=== PATIENT | female | born 1955 | race Caucasian/White ===

== ENCOUNTER → 2024-11-29 11:03 | Outpatient (CLI) | payer MEDICARE, OTHER, SELFPAY ==
--- NOTE | 2024-11-29 11:06 | DI.MG.S_ITS ---
MM screening mammo BI: 11/29/2024. BI-RADS: 0 CLINICAL: 69-year old female for bilateral screening mammogram. Tyrer-Cuzick lifetime risk of 17.3%. Current reported family history of breast cancer: mother. PRIOR EXAMS 10/26/2023, 12/20/2022, 05/02/2022, 04/25/2022, 04/22/1021, 04/21/2020. MAMMOGRAPHY TECHNIQUE: 2D and 3D (tomosynthesis) digital mammographic views obtained, with additional images as needed for full coverage. Current study was also evaluated with a Computer Aided Detection (CAD) system. DENSITY C. The breasts are heterogeneously dense, which may obscure small masses. MAMMOGRAPHY FINDINGS Right: No suspicious mass, asymmetry, microcalcification, or other abnormality seen. Left: Upper at 11:30, Middle depth: There is a new focal asymmetry present with associated calcifications. Additional imaging evaluation needed. IMPRESSION: Right * No evidence of malignancy. Left (Asymmetry): Upper at 11:30, Middle depth * Incomplete - Needs additional imaging evaluation. RECOMMENDATIONS Left: Upper at 11:30, Middle depth * Further evaluation with diagnostic mammography and diagnostic ultrasound. Ultrasound to be performed only if needed. OVERALL ASSESSMENT CATEGORY BI-RADS-0: Incomplete - Need Additional Imaging Evaluation. ELECTRONICALLY SIGNED: Camacho Bañuelos M.D. on 11/29/2024 at 05:33:43 PM PT Interpreting Station ID: [id number]
== END ==
PROVIDERS: PCP Family Medicine; Referring Provider Family Medicine; Visit Provider Family Medicine
DX: Z12.31 Encounter for screening mammogram for malignant neoplasm of breast (principal); R92.8 Other abnormal and inconclusive findings on diagnostic imaging of breast; R92.333 Mammographic heterogeneous density, bilateral breasts; Z80.3 Family history of malignant neoplasm of breast
CPT/HCPCS: 77063; 77067

== ENCOUNTER → 2024-12-04 13:23 | Outpatient (CLI) | payer MEDICARE, OTHER, SELFPAY ==
--- NOTE | 2024-12-04 13:24 | DI.MG.S_ITS ---
MM diagnostic mammo unilat LT: 12/04/2024. BI-RADS: 4 CLINICAL: 69-year old female for left diagnostic mammogram that is a recall from screening on 11/29/2024. Tyrer-Cuzick lifetime risk of 17.3%. Current reported family history of breast cancer: mother. PRIOR EXAMS Mammogram(s): 11/29/2024. MAMMOGRAPHY TECHNIQUE: 2D and 3D (tomosynthesis) digital mammographic views obtained, with additional images as needed for full coverage. Current study was also evaluated with a Computer Aided Detection (CAD) system. DENSITY Left: C. The breasts are heterogeneously dense, which may obscure small masses. MAMMOGRAPHY FINDINGS Left: Upper Inner Quadrant, Posterior depth, 0.9cm. Previous report: Upper at 11:30: There are suspicious grouped coarse heterogeneous calcifications. IMPRESSION: Left (Calcification): Upper Inner Quadrant, Posterior depth, 0.9cm. Previous report: Upper at 11:30 * Suspicious findings with likelihood of malignancy. RECOMMENDATIONS Left: Upper Inner Quadrant, Posterior depth * Stereotactic-guided biopsy for further evaluation. COMMENTS: Findings and recommendations were discussed with the patient by Dr. Brenner during today's examination. OVERALL ASSESSMENT CATEGORY BI-RADS-4: Suspicious. ELECTRONICALLY SIGNED: Smita Acosta M.D. on 12/04/2024 at 02:46:39 PM PT Interpreting Station ID: [id number]
== END ==
LOC: MAMMO 13:24
PROVIDERS: PCP Family Medicine; Referring Provider Family Medicine; Visit Provider Family Medicine
DX: R92.8 Other abnormal and inconclusive findings on diagnostic imaging of breast (principal); R92.1 Mammographic calcification found on diagnostic imaging of breast; N63.20 Unspecified lump in the left breast, unspecified quadrant; R92.332 Mammographic heterogeneous density, left breast; Z80.3 Family history of malignant neoplasm of breast
CPT/HCPCS: 77065; G0279

== ENCOUNTER → 2024-12-23 08:09 | Outpatient (CLI) | payer MEDICARE, OTHER, SELFPAY ==
--- NOTE | 2024-12-23 08:54 | DI.MRI.S_ITS ---
MR breast BI wo/w con: 12/23/2024. BI-RADS: 6 CLINICAL: 69-year old female for bilateral diagnostic breast MRI that is a recall from screening on 11/29/2024. Current reported family history of breast cancer: mother. PRIOR EXAMS: Mammogram(s): 12/04/2024, 11/29/2024. Exam: 12/12/2024. Breast Procedure(s): 12/12/2024. MRI TECHNIQUE: Bilateral breast MRI was performed on a 1.5 Kae magnet using a dedicated breast coil with mild compression. Axial T1 and T2 STIR sequences were obtained. Dynamic contrast enhanced VIBRANT fat-suppressed sequences were obtained. Delayed sagittal high resolution or sagittal reconstructed isotropic sequence was also obtained. Subtraction images and maximum intensity projection images were obtained. The study was evaluated using Slan[employer] software. IV Contrast: 20 ml ProHance. FIBROGLANDULAR TISSUE Bilateral: C. Heterogeneous fibroglandular tissue. BACKGROUND PARENCHYMAL ENHANCEMENT Bilateral: Mild symmetrical background parenchymal enhancement. BREAST FINDINGS Right: There is no suspicious mass or non-mass enhancement. Left: Upper Inner Quadrant, Posterior depth: There is susceptibility artifact from biopsy clip corresponding to biopsy-proven malignancy (invasive lobular carcinoma). There is minimal surrounding non-mass enhancement spanning up to 1.9 cm in AP dimension (). There is no suspicious lymphadenopathy. IMPRESSION: Right * No evidence of malignancy. Left: Upper Inner Quadrant, Posterior depth * Known Biopsy-Proven Malignancy. RECOMMENDATIONS Left * Recommend appropriate surgical/oncological treatment of known breast cancer. OVERALL ASSESSMENT CATEGORY BI-RADS-6: Known Biopsy-Proven Malignancy. ELECTRONICALLY SIGNED: Smita Acosta M.D. on 12/30/2024 at 11:29:55 PM PT Interpreting Station ID: [id number]
== END ==
PROVIDERS: PCP Family Medicine; Referring Provider Family Medicine; Visit Provider Family Medicine
DX: C50.212 Malignant neoplasm of upper-inner quadrant of left female breast (principal); Z80.3 Family history of malignant neoplasm of breast; R92.323 Mammographic fibroglandular density, bilateral breasts
CPT/HCPCS: 77049; A9579

== ENCOUNTER → 2025-02-06 07:56 | Outpatient (CLI) | payer MEDICARE, OTHER, SELFPAY ==
[2025-02-06 08:46] LABS: Add Manual Diff / Slide Review NO; Hematocrit 41.3 % (36-46); Hemoglobin 14.1 g/dL (12.0-16.0); Lymphocytes Absolute Auto 1500 /uL (1100-4500); Mean Corpuscular HGB Conc 34.2 % (30-36); Mean Corpuscular Hemoglobin 30.8 PG (26-34); Mean Corpuscular Volume 90.1 fL (80-100); Platelet Count 204 X10^3/uL (150-400)
[2025-02-06 08:57] LABS: Alanine Aminotransferase 20 IU/L (<35); Albumin 4.7 g/dL (3.5-5.0); Albumin Globulin Ratio 1.9 (1.0-2.8); Alkaline Phosphatase 104 U/L (38-126); Blood Urea Nitrogen 19 mg/dL (7-17); Calcium 9.9 mg/dL (8.4-10.2); Carbon Dioxide 30 mmol/L (22-32); Chloride 107 mmol/L (98-107); Cholesterol 216 mg/dL (140-199); Estimated Glomerular Filt Rate > 60 mL/min (>60); Globulin 2.5 g/dL (1.7-4.1); Glucose 90 mg/dL (70-99); HDL Cholesterol 46 mg/dL (40-60); HEMOLYSIS < 15 (0-50); Potassium 4.6 mmol/L (3.4-5.1); Sodium 143 mmol/L (137-145); Total Protein 7.2 g/dL (6.3-8.2); Triglycerides 178 mg/dL (35-150)
[2025-02-06 09:16] LABS: T4 Total Thyroxine 7.94 ug/dL (5.5-11.0)
[2025-02-06 09:29] LABS: Thyroid Stimulating Hormone 0.029 uIU/mL (0.47-4.68)
== END ==
PROVIDERS: PCP Family Medicine; Referring Provider Family Medicine; Visit Provider Family Medicine
DX: E03.9 Hypothyroidism, unspecified (principal); R87.610 Atypical squamous cells of undetermined significance on cytologic smear of cervix (ASC-US); R87.810 Cervical high risk human papillomavirus (HPV) DNA test positive; N20.0 Calculus of kidney; C50.912 Malignant neoplasm of unspecified site of left female breast
CPT/HCPCS: 36415; 80053; 80061; 84436; 84443; 85025

== ENCOUNTER → 2025-04-22 13:27 | Outpatient (CLI) | payer MEDICARE, OTHER, SELFPAY | PROVIDERS: PCP Family Medicine; Visit Provider Nurse Practitioner Family | DX: R10.A0 Flank pain, unspecified side (principal); N89.8 Other specified noninflammatory disorders of vagina | CPT/HCPCS: 87077; 87086; 87210 ==

== ENCOUNTER 2025-04-26 13:24 | Emergency (ER) | payer MEDICARE, OTHER, SELFPAY ==
[2025-04-26] VITALS (17 sets, daily range): BP systolic 112–166; BP diastolic 55–76; PULSE 99–123; RESP 15–23; TEMP 37.4–37.9; O2SAT 94–100; BMI 24.7
--- NOTE | 2025-04-26 13:56 | DI.RAD.S_ITS ---
PROCEDURE: XR CHEST 1V INDICATIONS: suspected sepsis TECHNIQUE: One view of the chest was acquired. COMPARISON: None. FINDINGS: Surgical changes and devices: Surgical clips in the left axilla Lungs and pleura: Lungs are clear. No pleural effusions or pneumothorax. Mediastinum: Mediastinal contours appear normal. Heart size is normal. Bones and chest wall: No suspicious bony lesions. Overlying soft tissues appear unremarkable. IMPRESSION: No acute cardiopulmonary abnormality is seen. Approved by: Edgar Gray M.D. on 04/26/2025 at 13:42
--- NOTE | 2025-04-26 13:56 | EKG_ITS ---
[address] [address] Test Date: 2025-04-26 Pat Name: Wanda Tomlin Department: [facility] Room: Gender: Female Supervisor Backfilling: WILFRID : [id number] Requested By: Order Number: [id number] Reading MD: Min Ramirez MD Measurements Intervals [place] Rate: 115 P: 66 IA: 136 QRS: 29 QRSD: 66 T: 67 QT: 304 QTc: 420 Interpretive Statements Sinus tachycardia Nonspecific ST abnormality Electronically Signed On 04-26-2025 14:32:25 PDT by Min Ramirez MD
[2025-04-26] MEDS: SODIUM CHLORIDE 0.9% 1,000 ML 1000 ML IV ×2 (14:09→17:47)
[2025-04-26 14:34] LABS: Hematocrit 35.3 % (36-46); Hemoglobin 11.8 g/dL (12.0-16.0); Mean Corpuscular HGB Conc 33.5 % (30-36); Mean Corpuscular Hemoglobin 31.7 PG (26-34); Mean Corpuscular Volume 94.4 fL (80-100); Platelet Count 115 X10^3/uL (150-400)
[2025-04-26 14:36] LABS: Add Manual Diff / Slide Review YES
[2025-04-26] MEDS: SODIUM CHLORIDE 0.9% 1,837.05 ML 612.35 ML IV (14:36)
[2025-04-26] MEDS: ACETAMINOPHEN IV 1,000 MG/100 ML VIAL 400 MG IV (14:36)
[2025-04-26 14:40] LABS: INR 1.1 (0.9-1.3); Prothrombin Time 11.9 SECONDS (9.4-12.5)
[2025-04-26 14:43] LABS: PTT Partial Thromboplastin Tim 24 SECONDS (25.1-36.5)
[2025-04-26 14:45] LABS: Alanine Aminotransferase 27 IU/L (<35); Albumin 4.5 g/dL (3.5-5.0); Albumin Globulin Ratio 1.5 (1.0-2.8); Alkaline Phosphatase 150 U/L (38-126); Blood Urea Nitrogen 15 mg/dL (7-17); Calcium 9.2 mg/dL (8.4-10.2); Carbon Dioxide 25 mmol/L (22-32); Chloride 103 mmol/L (98-107); Estimated Glomerular Filt Rate > 60 mL/min (>60); Globulin 3.0 g/dL (1.7-4.1); Glucose 109 mg/dL (70-99); HEMOLYSIS 47 (0-50); Lactate (Lactic Acid) 1.1 mmol/L (0.7-2.1); Lipase 58 U/L (23-300); Potassium 4.3 mmol/L (3.4-5.1); Sodium 136 mmol/L (137-145); Total Protein 7.5 g/dL (6.3-8.2)
[2025-04-26 14:50] LABS: Band Neutrophils Percent 2.0 % (3-7); Lymphocytes Percent Manual 10.0 % (25-45); Monocytes Percent Manual 9.0 % (2-11); Neutrophils Absolute Manual 15633 /uL (3000-5900); Segmented Neutrophils Percent 79.0 % (38-70); Total Cells Counted 100
[2025-04-26 14:51] LABS: Anisocytosis 1+
[2025-04-26 15:01] LABS: Procalcitonin 0.132 ng/mL (<0.5)
--- NOTE | 2025-04-26 15:14 | ED.ABDPAIN ---
HPI - Abdominal Pain General Chief Complaint: Fever Stated Complaint: long sleep/fever/headache for 2 hrs/chemo pt Time Seen by Provider: 04/26/25 14:01 Source: patient and family Mode of arrival: Ambulatory History of Present Illness HPI narrative: Patient is a 70-year-old female currently undergoing chemotherapy for breast cancer last chemo was 3 weeks ago she also received Neupogen like shot a couple weeks ago presenting today with fever. She was seen and evaluated at walk-in clinic on 04/22/2025 for painful frequent urination along with some vaginal itching. She had a vaginal swab/wet mount which was negative for clue cells, yeast and Trichomonas urine culture does show Gram-positive cocci. She was prescribed cefdinir however she says she had ciprofloxacin at home which is what she took she contacted her oncologist who said that she could take either. So she has been taking Cipro. She actually thought she was doing okay however today she was sleeping a lot and had a fever and is currently febrile and tachycardic. She does report that a couple days ago she had had some pretty bad flank pain she does have a history of kidney stones. But she is not really having flank pain now. No cough no shortness of breath. No significant abdominal pain Related Data Home Medications ?Medication ?Instructions ?Recorded ?Confirmed levothyroxine 150 mcg tablet 150 mcg PO DAILY 11/25/24 04/24/25 potassium citrate 15 mEq (1,620 15 meq PO BID 11/25/24 04/24/25 mg) tablet,extended release Previous Rx's ?Medication ?Instructions ?Recorded diazepam 2 mg tablet (Valium) 1 - 2 mg (0.5 - 1 x 2 mg) PO 12/20/24 BEDTIME PRN anxiety #5 tabs liothyronine 5 mcg tablet 5 mcg PO BID #90 tabs 02/07/25 cefdinir 300 mg capsule 300 mg PO BID #14 caps 04/22/25 Allergies Allergy/AdvReac Type Severity Reaction Status Date / Time carboplatin AdvReac Rash Verified 04/26/25 13:43 Patient History Medical History (Updated 04/26/25 @ 18:16 by Dorothy Evangelista DO) Human papilloma virus (~2004) Abnormal Pap smear of cervix (~2004) Kidney stones (~2009) Surgical History (Updated 11/13/24 @ 21:07 by Yanet Og) Anesthesia History of nephrolithotomy with removal of calculi Social History (Updated 01/28/25 @ 11:03 by Leatha Salguero) Smoking Status: Never smoker Smoking Status: Never smoker Exam Initial Vital Signs Initial Vital Signs: Vital Signs Temperature 99.9 F H 04/26/25 13:44 Pulse Rate 123 H 04/26/25 13:44 Respiratory Rate 17 04/26/25 13:44 Blood Pressure 141/67 H 04/26/25 13:44 Pulse Oximetry 100 04/26/25 13:44 Oxygen Delivery Method Room Air 04/26/25 13:44 GENERAL: Alerts well-appearing nontoxic 70-year-old female and in no acute distress. HEENT: Head atraumatic,EOMI, pupils reactive, face symmetric, moist mucous membranes CARDIOVASCULAR: Tachycardic regular. RESPIRATORY: Breath sounds equal bilaterally, no wheezes rales or rhonchi. ABDOMEN: Soft, nontender. Normoactive bowel sounds all 4 quadrants. No guarding or rebound. : No flank pain EXTREMITIES: Normal range of motion, no clubbing or edema. Neurovascularly intact NEUROLOGICAL: Alert and oriented x4.Normal gait and speech. Cranial nerves II through XII grossly intact. SKIN: Warm, dry, no laceration, no petechiae, no rashes or lesions. Course Orders Ordered: Discontinued Medications Sodium Chloride (Normal Saline 0.9%) 1,000 mls @ 1,000 mls/hr IV BOLUS ONE Stop: 04/26/25 14:55 Last Infusion: 04/26/25 14:47 Dose: Infused Documented By: Admin: 04/26/25 14:09 Dose: 1,000 mls/hr Documented By: Acetaminophen (Ofirmev) 1,000 mg in 100 mls @ 400 mls/hr IV NOW ONE Stop: 04/26/25 14:44 Last Infusion: 04/26/25 15:03 Dose: Infused Documented By: Admin: 04/26/25 14:36 Dose: 400 mls/hr Documented By: LIA Sodium Chloride (Normal Saline 0.9%) 1,837.05 mls @ 612.35 mls/hr 30 ml/kg infuse over 3 hr (1837.05 ml) IV NOW ONE Stop: 04/26/25 17:29 Last Infusion: 04/26/25 16:13 Dose: Infused Documented By: Infusion: 04/26/25 16:12 Dose: 999 mls/hr Documented By: Admin: 04/26/25 14:36 Dose: 612.35 mls/hr Documented By: LIA Ceftriaxone Sodium 1,000 mg/ (Sodium Chloride) 100 mls @ 200 mls/hr IV NOW ONE Stop: 04/26/25 15:15 Last Infusion: 04/26/25 16:08 Dose: Infused Documented By: Admin: 04/26/25 15:29 Dose: 200 mls/hr Documented By: Sodium Chloride (Normal Saline 0.9%) 1,000 mls @ 1,000 mls/hr IV BOLUS ONE Stop: 04/26/25 18:33 Last Infusion: 04/26/25 19:07 Dose: Infused Documented By: Admin: 04/26/25 17:47 Dose: 1,000 mls/hr Documented By: LIA Ondansetron HCl (Ondansetron 4 Mg/2 Ml Inj) 4 mg IV NOW PRN PRN Reason: Nausea And Vomiting Ondansetron HCl (Ondansetron 4 Mg Odt) 4 mg PO NOW PRN PRN Reason: Nausea And Vomiting Vital Signs Vital signs: Vital Signs - 8 hr 04/26/25 13:44 04/26/25 14:18 04/26/25 14:22 Temperature 99.9 F H Pulse Rate 123 H 111 H 112 H Respiratory Rate 17 23 Blood Pressure 141/67 H Pulse Oximetry 100 95 96 Oxygen Delivery Method Room Air 04/26/25 14:22 04/26/25 14:30 04/26/25 14:30 Temperature 100.2 F H Pulse Rate 112 H Respiratory Rate 20 Blood Pressure 141/70 H 126/65 Pulse Oximetry 96 Oxygen Delivery Method 04/26/25 15:00 04/26/25 15:10 04/26/25 15:10 Temperature Pulse Rate 106 H 117 H Respiratory Rate 22 19 Blood Pressure 166/76 H Pulse Oximetry 95 96 Oxygen Delivery Method 04/26/25 15:30 04/26/25 15:38 04/26/25 15:43 Temperature 99.3 F 99.3 F Pulse Rate 109 H 110 H Respiratory Rate 21 20 Blood Pressure Pulse Oximetry 94 97 Oxygen Delivery Method 04/26/25 15:43 04/26/25 16:00 04/26/25 16:00 Temperature Pulse Rate 104 H Respiratory Rate 18 Blood Pressure 134/63 127/58 L Pulse Oximetry 95 Oxygen Delivery Method 04/26/25 16:12 04/26/25 16:12 04/26/25 16:30 Temperature Pulse Rate 109 H Respiratory Rate 19 Blood Pressure 131/62 121/58 L Pulse Oximetry 96 Oxygen Delivery Method 04/26/25 16:30 Temperature Pulse Rate 103 H Respiratory Rate 15 Blood Pressure Pulse Oximetry 97 Oxygen Delivery Method MDM - Abdominal Pain Lab Data 04/26/25 14:23 04/26/25 14:23 Labs: Lab Results 04/26/25 04/26/25 Range/Units 14:23 15:31 WBC 19.3 H (4.5-11.0) X10^3/uL RBC 3.74 L (4.0-5.2) X10^6/uL Hgb 11.8 L (12.0-16.0) g/dL Hct 35.3 L (36-46) % MCV 94.4 (80-100) fL MCH 31.7 (26-34) PG MCHC 33.5 (30-36) % RDW 17.7 H (11.6-14.8) % Plt Count 115 L (150-400) X10^3/uL Neut % (Auto) Not Reportable Lymph % (Auto) Not Reportable [place] % (Auto) Not Reportable Eos % (Auto) Not Reportable Baso % (Auto) Not Reportable Lymph # (Auto) Not Reportable [place] # (Auto) Not Reportable Baso # (Auto) Not Reportable Total Counted 100 Seg Neutrophils % 79.0 H (38-70) % Band Neutrophils % 2.0 L (3-7) % Lymphocytes % (Manual) 10.0 L (25-45) % Monocytes % (Manual) 9.0 (2-11) % Neutrophils # (Manual) 65776 H (3511-9553) /uL RBC Morphology See below Anisocytosis 1+ H PT 11.9 (9.4-12.5) SECONDS INR 1.1 (0.9-1.3) APTT 24 L (25.1-36.5) SECONDS Sodium 136 L (137-145) mmol/L Potassium 4.3 (3.4-5.1) mmol/L Chloride 103 (98-107) mmol/L Carbon Dioxide 25 (22-32) mmol/L BUN 15 (7-17) mg/dL Creatinine 0.87 (0.52-1.04) mg/dL Estimated GFR > 60 (>60) mL/min BUN/Creatinine Ratio 17.2 (6-22) Glucose 109 H (70-99) mg/dL Lactate 1.1 (0.7-2.1) mmol/L Calcium 9.2 (8.4-10.2) mg/dL Total Bilirubin 0.4 (0.2-1.3) mg/dL AST 30 (14-36) IU/L ALT 27 (<35) IU/L Alkaline Phosphatase 150 H (38-126) U/L Troponin I < 0.012 (0.01-0.034) ng/mL Total Protein 7.5 (6.3-8.2) g/dL Albumin 4.5 (3.5-5.0) g/dL Globulin 3.0 (1.7-4.1) g/dL Albumin/Globulin Ratio 1.5 (1.0-2.8) Lipase 58 (23-300) U/L Procalcitonin 0.132 (<0.5) ng/mL Urine RBC 1-5/hpf (0-5/HPF) Urine WBC 1-5/hpf (0-5/HPF) Ur Squamous Epith Cells 0-1 /hpf (0-5/HPF) Urine Bacteria None seen (None) Ur Culture Indicated? Cult not indicated Vol Urine Centrifuged 3 Point of care testing: Urine Dip Bedside Urine Glucose Negative Bedside Urine Bilirubin - Negative Bedside Urine Ketone - Negative Urine Specific [place] 1.005 Bedside Urine Occult Blood +/- Bedside Urine pH 8.5 Bedside Urine Protein +/- 15 Bedside Urine Urobilinogen - Negative Bedside Urine Nitrite - Negative Bedside Urine Leukocytes - Negative Esterase Imaging Data Chest x-ray: Radiologist's Impression: PROCEDURE: XR CHEST 1V INDICATIONS: suspected sepsis TECHNIQUE: One view of the chest was acquired. COMPARISON: None. FINDINGS: Surgical changes and devices: Surgical clips in the left axilla Lungs and pleura: Lungs are clear. No pleural effusions or pneumothorax. Mediastinum: Mediastinal contours appear normal. Heart size is normal. Bones and chest wall: No suspicious bony lesions. Overlying soft tissues appear unremarkable. IMPRESSION: No acute cardiopulmonary abnormality is seen. Approved by: Edgar Gray M.D. on 04/26/2025 at 13:42 CT scan - abdomen/pelvis: Radiologist's Impression: PROCEDURE: CT ABDOMEN PELVIS W CON INDICATIONS: flank pain, hx breast ca, fever TECHNIQUE: After the administration of intravenous contrast, axial sections acquired from the lung bases to the pubic symphysis. Coronal and sagittal reformats were performed. For radiation dose reduction, the following was used: automated exposure control, adjustment of mA and/or kV according to patient size. COMPARISON: None. FINDINGS: Lower Chest: No significant findings. Small hiatal hernia ABDOMEN: Liver: No solid mass. Gallbladder: Cholelithiasis. No pericholecystic inflammatory change. Biliary ducts: No biliary dilation. Pancreas: No ductal dilation. Spleen: Size is within normal limits. Adrenal Glands: No adrenal nodules. Kidneys and Ureters: Bilateral nonobstructive renal calculi. Largest on the left measures 1 cm 1.9 cm right renal cortical cyst. No right hydronephrosis. There is mild left hydronephrosis and hydroureter with perinephric edema. No ureteral calculus noted. Stomach and Bowel: Normal colonic caliber, without significant wall thickening. Multiple diverticula arise from the sigmoid colon without evidence of diverticulitis. Peritoneum: No abnormal intraperitoneal fluid. No free air. Ventral Wall: No significant ventral hernia. Abdominal Nodes: No retroperitoneal or mesenteric adenopathy by size criteria. Vessels: Aorta and inferior vena cava are normal in size. PELVIS: Pelvic Organs: Calcified uterine fibroid Bladder: No bladder wall thickening, accounting for underdistention. Pelvic Nodes: No enlarged lymph nodes. Miscellaneous: No inguinal hernias are seen. Bones: No aggressive osseous abnormality. IMPRESSION: Left-sided mild hydronephrosis with perinephric edema but without obstructing calculus visualized. Differential possibilities include recently passed stone and non radiopaque calculus. Multiple additional bilateral renal calculi. Cholelithiasis without cholecystitis Diverticulosis without diverticulitis Approved by: Edgar Gray M.D. on 04/26/2025 at 14:41 ECG Data Attestation: I personally reviewed and interpreted this ECG as follows: Interpretation: Sinus tachycardia rate 115 MT interval 136 QRS [address] changes MDM Narrative Medical decision making narrative: MDM CC: Fever weakness Complicating co-morbidities: Breast cancer currently undergoing chemotherapy Data collected from: Patient [facility] oncology records reviewed Medical records reviewed: Walk-in clinic record reviewed as above in HPI Differential considered: Sepsis, neutropenic fever, Exam documented above, pertinent findings include: Alert well-appearing nontoxic 70-year-old female tachycardia abdomen is soft no flank pain breath sounds are clear no respiratory distress Lab Test results independently reviewed as above. Pertinent findings: CBC shows leukocytosis of 19 no anemia platelets are 115 CMP no electrolyte abnormality glucose is 109 Lactate 1.1, procalcitonin 0.132 Urinalysis does not show leukocytes no culture indicated Independently reviewed EKG as above Sinus tachycardia no ischemia Imaging studies independently reviewed: Chest x-ray no acute cardiopulmonary process CT abdomen pelvis left-sided mild hydronephrosis with perinephric edema no visualized obstructing calculus possibly a recently passed stone and multiple bilateral renal calculi cholelithiasis without cholecystitis Consultations: [ ] Treatments: 2 L of IV fluid Rocephin Re-evaluations: Patient overall appears well nontoxic still mildly tachycardic given a 2 L of fluid which does seem to help. Discussion: Patient is 70-year-old female currently undergoing chemotherapy with fever. Urine culture from 04/22/2025 does show Gram-positive cocci she has been on ciprofloxacin. She has got leukocytosis of 19 she is not neutropenic, she has a normal lactic acid, and procalcitonin 0.132. I suspect that she might have mild pyelonephritis with a perinephric stranding on the left side she is not significantly tender there now. She does appear well she was prescribed cefdinir for 7 days. At this time she would like to go home which I think is reasonable. But I would change her over to cefdinir for more Gram-positive cocci and Cipro. Strict return precautions discussed with both patient and understand and agree. Discharge Plan Departure Patient Disposition: Home Clinical Impression: Acute pyelonephritis Instructions: DI for Kidney Infection Activity Restrictions/Additional Instructions: *You have been diagnosed with kidney infection *What to do: At this time increase fluids as tolerated recommend electrolyte fluid of your choice may increase diet and food as tolerated as well *Continue to take medications as directed Stop taking Cipro Start taking cefdinir for 7 days (already prescribed) *Follow up with your primary care provider in 2-3 days or call [phone] *Return to ER if you should have increasing dizziness lightheadedness persistent fever after 48-72 hours if this antibiotic not tolerating fluids or any new, worsening or concerning symptoms Prescriptions: No Action diazepam [Valium] 2 mg tablet 1 - 2 mg PO BEDTIME PRN (Reason: anxiety) Qty: 5 0RF cefdinir 300 mg capsule 300 mg PO BID Qty: 14 0RF liothyronine 5 mcg tablet 5 mcg PO BID Qty: 90 1RF Rx Instructions: Take 1 tablet by mouth twice daily levothyroxine 150 mcg tablet 150 mcg PO DAILY potassium citrate 15 mEq tablet extended release 15 meq PO BID Referrals: eHlen Mora MD [Primary Care Provider, Family Practice] Stand Alone Forms: Patient Portal/API
[2025-04-26 15:48] LABS: Culture Indicated Urine Cult Not Indicated
[2025-04-26 15:55] LABS: Troponin I < 0.012 ng/mL (0.01-0.034)
== END 2025-04-26 19:14 | disposition home or self-care (01) ==
PROVIDERS: Emergency Provider Emergency Medicine; PCP Family Medicine
DX: N10 Acute pyelonephritis (principal); C50.919 Malignant neoplasm of unspecified site of unspecified female breast; Z92.21 Personal history of antineoplastic chemotherapy
CPT/HCPCS: 36415; 71045; 74177; 80053; 81003; 81015; 83605; 83690; 84145; 84484; 85007; 85025; 85610; 85730; 87040; 93005; 96361; 96365; 96367; 99284; J0131; J0696; J7030; J7050; Q9967

== ENCOUNTER → 2025-05-16 11:01 | Outpatient (CLI) | payer MEDICARE, OTHER, SELFPAY ==
[2025-05-16 13:04] LABS: TSH w/ Reflex to FT4 0.02 uIU/mL (0.47-4.68)
[2025-05-16 13:33] LABS: Free T4, Direct Thyroxine 1.63 ng/dL (0.78-2.19)
== END ==
PROVIDERS: PCP Family Medicine; Referring Provider Family Medicine; Visit Provider Family Medicine
DX: E03.9 Hypothyroidism, unspecified (principal)
CPT/HCPCS: 36415; 84439; 84443

== ENCOUNTER → 2025-06-12 08:43 | Outpatient (CLI) | payer MEDICARE, OTHER, SELFPAY ==
--- NOTE | 2025-06-12 08:44 | DI.US.S_ITS ---
PROCEDURE: US PELVIC COMPLETE INDICATIONS: evaluate uterine size and adnexa TECHNIQUE: Real-time scanning was performed of the pelvic organs, with image documentation. Additional endovaginal scanning was necessary due to incomplete visualization of the adnexal and endometrial structures by transabdominal scanning. COMPARISON: None. FINDINGS: Uterus: Uterus is anteverted and normal in size at 5.3 x 5.7 x 6.9 cm. The myometrium is homogeneous. The endometrium measures 3 mm combined thickness. Multiple intrauterine fibroids. There is a right anterior intramural fibroid measuring 2.7 x 2.1 x 2.5 cm. There is a right midline anterior intramural fibroid measuring 2.4 x 2.1 x 2.1 cm. There is a left anterior intramural uterine fibroid measuring 3.4 x 2.9 x 3.3 cm. Ovaries: Ovaries are not visualized on this exam. Other: No pathologic free abdominal or pelvic fluid. IMPRESSION: Leiomyomatous uterus. No acute sonographic abnormalities. Ovaries not visualized on this exam. We strive to produce accurate, complete, and clear reports of imaging services. To assist us in improving patient care, this report was composed using standard report templates and voice recognition software. Therefore, it may contain abnormal punctuation, insertions and/or omissions. Occasional wrong-word or sound-alike substitutions may occur. Though we review the report and make efforts to correct it, we do recommend that the report be read carefully in proper context to recognize any text inaccuracies. Dictated by: Camacho Bañuelos M.D. on 06/12/2025 at 18:11 Approved by: Camacho Bañuelos M.D. on 06/12/2025 at 18:18
== END ==
LOC: US 08:44
PROVIDERS: PCP Family Medicine; Referring Provider Student in an Organized Health Care Education/Training Program; Visit Provider Student in an Organized Health Care Education/Training Program
DX: N87.1 Moderate cervical dysplasia (principal); D25.1 Intramural leiomyoma of uterus
CPT/HCPCS: 76830; 76856

== ENCOUNTER → 2025-06-17 12:19 | Outpatient (CLI) | payer MEDICARE, OTHER, SELFPAY ==
[2025-06-17 14:44] LABS: Vitamin D 25 Hydroxy (D3) 36.8 ng/mL (30.0-100.0)
== END ==
PROVIDERS: PCP Family Medicine; Referring Provider Family Medicine; Visit Provider Family Medicine
DX: Z79.899 Other long term (current) drug therapy (principal)
CPT/HCPCS: 82306